=== PATIENT | male | born 1980 ===

== ENCOUNTER 2024-05-26 10:29 | Inpatient (IN) ==
[2024-05-26] MEDS ORDERED: Al Hydrox/Mg Hydrox/Simet LIQ 30 ML UDC PO PRN (14:12)
[2024-05-26] MEDS ORDERED: Polyethylene Glycol 3350 17 GM PACKET PO PRN (14:20)
[2024-05-26] MEDS ORDERED: Dextrose 50% Syringe 50 ml 25 GM/50 ML SYRINGE IV PUSH PRN (14:59)
[2024-05-26] MEDS: prednisoLONE 1% OPHTH.SUSP 5 ML OPHTH.SUSP BOTH EYES SCH (19:58)
[2024-05-26] MEDS: [UNRECOGNIZED DRUG - REMARK] LEFT EYE SCH (19:59)
[2024-05-26] MEDS: Insulin GLARGINE 100 un/ml 10 ml VIAL SUBCUT SCH (22:13)
[2024-05-26] MEDS: CMC:Dorzolamide/Timolol OPTH (NF) 10 ML BOT BOTH EYES SCH (22:15)
[2024-05-26] MEDS: Cyclopentolate 1% OPTH.SOL 2 ML BTL BOTH EYES SCH (22:15)
== END 2024-05-27 16:00 | disposition home or self-care (01) | DRG 755 ==
LOC: BSU 14:42
PROVIDERS: ADMIT Psychiatry & Neurology Psychiatry; ATTEND Psychiatry & Neurology Psychiatry